=== PATIENT | female | born 1960 | race Caucasian/White ===

== ENCOUNTER 2020-05-02 20:55 | Emergency (ER) | payer MEDICAID ==
[~2020-05-02] VITALS: Ht 170.2 cm; Wt 101.0 kg
[2020-05-02 21:08] VITALS: BP 90/52
[2020-05-02 23:37] LABS: MICROSCOPIC INDICATED
--- NOTE | 2020-05-03 00:02 | NUR ---
NO ANSWER WHEN CALLED FOR ROOM
--- NOTE | 2020-05-03 00:36 | NUR ---
CALLED FOR ROOM, NO ANSWER
--- NOTE | 2020-05-03 00:39 | NUR ---
THIS PT HAS NEVER BEEN HERE BEFORE, NO NUMBER AVAILABLE TO CALL WITH RESULTS
--- NOTE | 2020-05-03 01:23 | NUR ---
SECURITY FOUND PT SLEEPING SOUNDLY, BACK INTO SYSTEM AND PA TO DC.
== END 2020-05-03 00:48 ==
LOC: ED 05-03 00:42
DX: N30.00 Acute cystitis without hematuria (principal); F12.10 Cannabis abuse, uncomplicated; R30.0 Dysuria; R50.9 Fever, unspecified; R10.9 Unspecified abdominal pain; F17.210 Nicotine dependence, cigarettes, uncomplicated
CPT/HCPCS: 81001; 87086; 99283; 99406